=== PATIENT | male | born 1980 | race Caucasian/White ===

== ENCOUNTER 2019-03-14 09:27 | Emergency (ER) | payer OTHER ==
[~2019-03-14] VITALS: Ht 175.3 cm; Wt 122.9 kg
[2019-03-14 09:31] VITALS: BP 92/38
[2019-03-14] MEDS ORDERED: HYDROcodone/APAP 5/325 MG 1 TAB TAB PO ONE (09:55)
[2019-03-14 10:53] VITALS: BP 100/55
== END 2019-03-14 10:53 | disposition home or self-care (01) ==
LOC: MED 09:27
DX: S63.601A Unspecified sprain of right thumb, initial encounter (principal); S70.312A Abrasion, left thigh, initial encounter; S70.311A Abrasion, right thigh, initial encounter; S40.812A Abrasion of left upper arm, initial encounter; V89.2XXA Person injured in unspecified motor-vehicle accident, traffic, initial encounter; Y93.89 Activity, other specified; Y92.89 Other specified places as the place of occurrence of the external cause; Y99.8 Other external cause status
CPT/HCPCS: 29125; 73140; 82948; 90471; 90715; 99283; Q0092

== ENCOUNTER 2021-12-06 08:09 | Emergency (ER) | payer OTHER ==
[~2021-12-06] VITALS: Ht 175.3 cm; Wt 98.0 kg
[2021-12-06 08:16] VITALS: BP 160/107
[2021-12-06] MEDS ORDERED: KETOROLAC 60 MG/2 ML VIAL IM ONE (08:30)
[2021-12-06] MEDS ORDERED: IBUP-2213 PO (10:07)
[2021-12-06] MEDS ORDERED: ACET-8386 PO (10:07)
[2021-12-06 10:14] VITALS: BP 129/75
== END 2021-12-06 10:14 | disposition home or self-care (01) ==
LOC: MED 08:09
DX: S22.32XA Fracture of one rib, left side, initial encounter for closed fracture (principal); M25.562 Pain in left knee; E11.9 Type 2 diabetes mellitus without complications; V23.4XXA Motorcycle driver injured in collision with car, pick-up truck or van in traffic accident, initial encounter; Y93.89 Activity, other specified; Y92.89 Other specified places as the place of occurrence of the external cause; Y99.8 Other external cause status
CPT/HCPCS: 71101; 73562; 96372; 99284; J1885